=== PATIENT | female | born 1990 | race Asian ===

== ENCOUNTER 2024-10-16 22:13 | Emergency (ER) | payer OTHER, SELFPAY ==
[2024-10-16 22:17] VITALS: BP 126/89
[2024-10-16 22:23] VITALS: BMI 31.1
[2024-10-16 22:25] LABS: Glucose - Point of Care 115 mg/dl (70-99)
[2024-10-16 22:51] LABS: % Basophils 0.4 % (0-2); % Eosinophils 4.4 % (0-6); % Immature Granulocytes 0.3 % (0-0.5); % Lymphocytes 40.4 % (20.5-51.1); % Monocytes 8.4 % (1.7-9.3); % Neutrophils 46.1 % (42.2-75.2); Absolute Eosinophils 0.4 10^3/uL (0-0.7); Absolute Monocytes 0.8 10^3/uL (0.1-0.6); Absolute Neutrophils 4.6 10^3/uL (1.4-6.5); Hematocrit 37.7 % (37.0-47.0); Hemoglobin 13.3 g/dL (12.0-16.0); Mean Corp Hgb Conc. 35.3 g/dL (33.0-37.0); Mean Corpuscular Hgb 29.2 pg (27.0-31.0); Mean Corpuscular Volume 82.7 fL (81.0-99.0); Mean Platelet Volume 11.3 fL (7.4-10.4); Nucleated Red Blood Cells % 0 %; Platelet Count 233 10^3/uL (130-400); Red Blood Cell Count 4.56 10^6/uL (4.20-5.40); Red Cell Dist. Width 14.1 % (11.5-14.5)
[2024-10-16 23:00] VITALS: BP 122/78
[2024-10-16 23:05] LABS: ALT (SGPT) 17 U/L (0-35); AST (SGOT) 19 U/L (14-36); Alkaline Phosphatase 41 U/L (38-126); Blood Urea Nitrogen 12 mg/dl (7-17); Calcium 9.1 mg/dl (8.4-10.2); Carbon Dioxide 20 mmol/L (22-30); Chloride 110 mmol/L (98-107); Estimated Creatinine Clearance 119 ml/min; Glucose 113 mg/dl (70-99); Potassium 4.3 mmol/L (3.5-5.1); Sodium 139 mmol/L (135-145); Total Bilirubin 0.4 mg/dl (0.2-1.3); Total Protein 7.2 g/dl (6.3-8.2); eGFR > 60.00
[2024-10-17] VITALS: BP 123/83
[2024-10-17 01:00] VITALS: BP 99/66
[2024-10-17 01:07] VITALS: BP 100/64
[2024-10-17 01:11] VITALS: BP 115/88
[2024-10-17 01:12] VITALS: BP 100/64; BP 115/88; BP 116/83; PULSE 68; PULSE 86; PULSE 90
--- NOTE | 2024-10-17 01:30 | ED.GENMED ---
History of Present Illness
General
Chief Complaint: Blood Pressure Problem
Source: patient and family
Exam Limitations: none
Time Seen by Provider: 10/16/24 23:58
Nursing documentation reviewed up to this point in time: agreed with
History of Present Illness
History of Present Illness:
34 yo female with no PMHX presents for near syncope, she has had flu like symptoms past 2 days (sore throat, cough, runny nose), all improving. Tested Covid negative at home.
6 p.m. got 'tingling sensations' left face, arm and leg, and my eyes rolled back,' felt dizzy, got numb feeling left side of face, arm and leg for few minutes, felt her left face was drooping but with her states he did not see a facial droop
during this episode. took her BP and reports 86/59, states she typically has BP around 100 systolic. She ate chocolate and coffee and some food and felt a little better.
Now she is just fatigued. Denies headache, above symptoms have not returned.
Past History
Past History
ED Past Medical History: None
ED Past Surgical History:
Social History
Tobacco: Non-smoker
Alcohol: None
Personal:
Living: with family
Review of Systems
Review of Systems
Allergies reviewed?: Yes
All Other Systems: ROS reviewed and negative except as documented in HPI and ROS
Constitutional: Reports fatigue; Denies fever or chills
EENT: Reports sore throat (Improving) and runny nose
Respiratory: Denies cough
Cardiac: Denies chest pain
ABD/GI: Denies abdominal pain, nausea or vomiting
: Denies dysuria or frequency
Musculoskeletal: Reports no symptoms
Skin: Reports no symptoms
Neurological: Reports numbness (As noted in HPI)
Phy Exam
Physical Exam
Physical Exam:
GENERAL: No acute distress. A&Ox3.
CONSTITUTIONAL: Afebrile.
EYES: clear, conjunctivae normal, PERRL
ENMT: moist mucus membranes, Pharynx nl
RESPIRATORY: Regular respirations, nonlabored, lungs clear.
CARDIOVASCULAR: Regular rate and rhythm, no murmurs, no rubs.
GI: Soft, nontender, normal BS
MUSCULOSKELETAL: Moves with ease. Well perfused.
SKIN: Warm, dry, normal
PSYCH: Normal mood and affect. Well kept, interactive and appropriate
NEUROLOGIC: Awake, alert and oriented. Speech clear. [id number] intact. Cranial nerves II through XII intact. Ambulates well with steady gait. No focal neurological deficits.
Course
Orders/Labs/Results
Orders:
Orders
10/16/24 22:40
CT Head W/o Iv Contrast Urgent
Comment:
Reason For Exam: neuro symptoms
10/16/24 22:43
Complete Blood Count/With Diff Urgent
Comprehensive Metabolic Panel Urgent
10/17/24 00:45
Orthostatic VS- Treatment ONCE
Abnormal Lab Results
10/16/24 10/16/24
22:23 22:43
MPV 11.3 H fL
(7.4-10.4)
Absolute Lymphs (auto) 4.0 H 10^3/uL
(1.2-3.4)
Absolute Monos (auto) 0.8 H 10^3/uL
(0.1-0.6)
Chloride 110 H mmol/L
(98-107)
Carbon Dioxide 20 L mmol/L
(22-30)
Glucose 113 H mg/dl
(70-99)
POC Glucose 115 H mg/dl
(70-99)
10/16/24 22:43
10/16/24 22:43
Vital Signs
Initial and Last Documented VS:
Initial Vital Signs
BP
126/89
10/16/24 22:17
Last Documented Vital Signs
Temp Pulse Resp BP Pulse Ox
98.0 F 91 11 115/88 95
10/16/24 22:23 10/17/24 01:11 10/17/24 01:11 10/17/24 01:11 10/17/24 01:11
MDM/Problems Addressed
Differential Diagnosis Includes:
vasovagal episode, dehydration, viral illness
MDM/Problems Addressed:
34 yo female with no PMHX presents for near syncope, she has had flu like symptoms past 2 days (sore throat, cough, runny nose), all improving. Tested Covid negative at home.
6 p.m. got 'tingling sensations' left face, arm and leg, and my eyes rolled back,' felt dizzy, got numb feeling left side of face, arm and leg for few minutes, felt her left face was drooping but with her states he did not see a facial droop
during this episode. took her BP and reports 86/59, states she typically has BP around 100 systolic. She ate chocolate and coffee and some food and felt a little better.
Now she is just fatigued. Denies headache, above symptoms have not returned.
Afebrile, NAD
Head CT neg
Labs unremarkable
Pt feeling better
Orthostatics negative
Offered IVF's but she kindly declines as she is feeling better.
*Critical Care Note
Total Time (30-74mins, 75-104mins- exclusive of procedures): Not Applicable
ED Attending Note
-
Portions of this chart may have been created with voice recognition software.� Occasional wrong word or��sound alike� substitutions may have occurred due to the inherent limitations of voice recognition software.
Discharge Plan
Departure
Patient Disposition: Home (Routine Discharge)
Date of Disposition: 10/17/24
Time of Disposition: 01:30
Patient with high blood pressure during this ER visit?: No
Condition: Good
Discharge Problem:
Viral illness, Postural dizziness with near syncope
Instructions: Vasovagal Response, Near Fainting (DC)
Referrals:
Killian Jensen DO [Family Provider, Family Practice]
Activity Restrictions/Additional Instructions:
As we discussed, your workup here shows nothing worrisome, specifically, no sign of a stroke, no dehydration or abnormality in your lab work.
Go from laying to sitting to standing slowly to allow your body to adjust
Drink plenty of fluids
Your symptoms are most likely in response to your viral illness
Interventions
Interventions:
*Risk Screen - Suicide Last Done: 10/16/24 22:23
*General Assessment Last Done: 10/16/24 22:23
*Neglect/Abuse Screening Last Done: 10/16/24 22:23
*ED- Fall Risk Assessment Last Done: 10/16/24 22:23
*ED COVID-19 Vaccine History Last Done: 10/16/24 22:23
*Nursing Disposition Last Done: 10/17/24 01:52
ED- Cardiac Assessment Last Done: 10/16/24 22:23
ED- Neurological Assessment Last Done: 10/16/24 22:23
ED- Pulmonary Assessment Last Done: 10/16/24 22:23
Discharge Date and Time
Discharge Date/Time: 10/17/24 01:52
Print Language: INDONESIAN
== END 2024-10-17 01:52 | disposition home or self-care (01) ==
LOC: EMR 22:13
PROVIDERS: EMERGENCY PHYSICIAN Emergency Medicine; FAMILY PHYSICIAN Family Medicine
DX: B34.9 Viral infection, unspecified (principal); R55 Syncope and collapse; R42 Dizziness and giddiness
CPT/HCPCS: 99285; 70450; 80053; 82962; 85025; 93005